=== PATIENT | female | born 1955 | race Caucasian/White ===

== ENCOUNTER 2020-04-06 11:35 | Emergency (ER) | payer OTHER ==
[2020-04-06] MEDS ORDERED: ONDANSETRON HCL 4 MG/2 ML VIAL ONE (12:11)
[2020-04-06] MEDS ORDERED: SODIUM CHLORIDE 0.9% 500ML 500 ML IV ONE (12:12)
[2020-04-06 12:21] LABS: BASOPHILS % (AUTO) 0.7 % (0.0-5.0); EOSINOPHILS % (AUTO) 1.3 % (0.0-8.0); HEMATOCRIT 39.1 % (36-48); MEAN CORPUSCULAR HEMOGLOBIN 28.6 pg (27.0-33.0); MEAN CORPUSCULAR HGB CONC 32.7 g/dL (32.0-36.0); MEAN CORPUSCULAR VOLUME 87.5 fL (79-99); MONOCYTES % (AUTO) 5.1 % (3.0-13.0); NEUTROPHILS % (AUTO) 70.5 % (40.0-77.0); PLATELET COUNT (AUTO) 303 K/uL (130-400); RED BLOOD CELL COUNT(AUTO) 4.47 MIL/uL (4.00-5.50); RED CELL DISTRIBUTION WIDTH 13.2 % (11.0-15.5); WHITE BLOOD COUNT (AUTO) 9.1 K/uL (4.8-10.8)
[2020-04-06 12:29] LABS: CREATININE 0.9 mg/dL (0.5-1.5); POTASSIUM 5.1 mmol/L (3.5-5.1)
[2020-04-06 12:34] LABS: ALBUMIN 4.2 g/dL (3.5-5.0); BILIRUBIN,DIRECT 0.1 mg/dL (0.0-0.3); BILIRUBIN,TOTAL 0.5 mg/dL (0.2-1.0); TOTAL PROTEIN, SERUM 7.7 g/dL (6.0-8.3)
== END 2020-04-06 14:07 | disposition home or self-care (01) ==
LOC: EDH 11:35
DX: R05 Cough (principal); R19.7 Diarrhea, unspecified; Z20.828 Contact with and (suspected) exposure to other viral communicable diseases
CPT/HCPCS: 36415; 71045; 80048; 80076; 82550; 82728; 85025; 85378; 96374; 99283; J2405; J7040; U0003

== ENCOUNTER → 2020-08-27 | Outpatient (CLI) | payer OTHER | END | disposition home or self-care (01) | LOC: RAH 10:25 | PROVIDERS: ATTEND Family Medicine | DX: E11.51 Type 2 diabetes mellitus with diabetic peripheral angiopathy without gangrene (principal); L60.0 Ingrowing nail; E11.9 Type 2 diabetes mellitus without complications | CPT/HCPCS: 93922 ==

== ENCOUNTER 2021-06-27 10:09 | Emergency (ER) | payer OTHER ==
[~2021-06-27] VITALS: Ht 154.9 cm; Wt 58.1 kg
[2021-06-27 10:38] VITALS: BP 175/76
[2021-06-27] MEDS ORDERED: HYDROCODONE/ACETAMINOPHEN 5/325 MG TAB PO ONE (11:30)
[2021-06-27] MEDS ORDERED: KETOROLAC 30MG VIAL (30MG/ML) IM PRN (11:30)
[2021-06-27] MEDS ORDERED: LIDOCAINE 5% TOPICAL PATCH TP ONE (11:30)
[2021-06-27] MEDS ORDERED: LIDOP TD ×2 (12:26→13:12)
[2021-06-27] MEDS ORDERED: CYCL10 PO ×2 (12:26→13:12)
[2021-06-27] MEDS ORDERED: NAPR-1180 PO ×2 (12:26→13:12)
== END 2021-06-27 14:13 | disposition home or self-care (01) ==
LOC: EDH 10:09
DX: M43.6 Torticollis (principal); I25.10 Atherosclerotic heart disease of native coronary artery without angina pectoris; E11.9 Type 2 diabetes mellitus without complications; I10 Essential (primary) hypertension; Z79.1 Long term (current) use of non-steroidal anti-inflammatories (NSAID); Z88.8 Allergy status to other drugs, medicaments and biological substances; Z95.1 Presence of aortocoronary bypass graft; Z91.041 Radiographic dye allergy status
CPT/HCPCS: 72040; 96372; 99283; J1885

== ENCOUNTER 2021-07-19 22:37 | Emergency (ER) | payer OTHER ==
[~2021-07-19 22:37] MED LIST: CYCL10 PO; LIDOP TD; NAPR-1180 PO
[2021-07-20 00:22] LABS: BASOPHILS % (AUTO) 0.6 % (0.0-5.0); EOSINOPHILS % (AUTO) 2.8 % (0.0-8.0); HEMATOCRIT 35.4 % (36-48); LYMPHOCYTES % (AUTO) 15.1 % (21.0-51.0); MEAN CORPUSCULAR HEMOGLOBIN 26.4 pg (27.0-33.0); MEAN CORPUSCULAR HGB CONC 31.6 g/dL (32.0-36.0); MEAN CORPUSCULAR VOLUME 83.3 fL (79-99); MONOCYTES % (AUTO) 5.4 % (3.0-13.0); NEUTROPHILS % (AUTO) 75.6 % (40.0-77.0); PLATELET COUNT (AUTO) 212 K/uL (130-400); RED BLOOD CELL COUNT(AUTO) 4.25 MIL/uL (4.00-5.50); RED CELL DISTRIBUTION WIDTH 14.6 % (11.0-15.5); WHITE BLOOD COUNT (AUTO) 8.8 K/uL (4.8-10.8)
[2021-07-20 00:30] LABS: CREATININE 0.7 mg/dL (0.5-1.5); INR 1.07 (0.85-1.15); POTASSIUM 5.8 mmol/L (3.5-5.1); PROTHROMBIN TIME 11.6 SEC (9.6-11.6)
[2021-07-20 00:36] LABS: ALBUMIN 4.3 g/dL (3.5-5.0); BILIRUBIN,TOTAL 0.4 mg/dL (0.2-1.0)
[2021-07-20 00:42] VITALS: BP 170/70
[2021-07-20] MEDS ORDERED: CEPHALEXIN 250 MG CAPSULE PO SCH (01:30)
[2021-07-20] MEDS ORDERED: HYDROCODONE/ACETAMINOPHEN 5/325 MG TAB PO ONE (01:30)
[2021-07-20] MEDS ORDERED: MELO7.5T12 PO (01:43)
[2021-07-20] MEDS ORDERED: ORPH-43 PO (01:43)
[2021-07-20] MEDS ORDERED: HYDROCODONE/ACETAMINOPHEN 5/325 MG TAB ONE (01:49)
[2021-07-20] MEDS ORDERED: CEPHALEXIN 250 MG CAPSULE ONE (01:49)
== END 2021-07-20 02:22 | disposition home or self-care (01) ==
LOC: EDH 22:37
DX: S20.214A Contusion of middle front wall of thorax, initial encounter (principal); E11.9 Type 2 diabetes mellitus without complications; I25.10 Atherosclerotic heart disease of native coronary artery without angina pectoris; J44.9 Chronic obstructive pulmonary disease, unspecified; Z79.1 Long term (current) use of non-steroidal anti-inflammatories (NSAID); Z88.8 Allergy status to other drugs, medicaments and biological substances; Z95.1 Presence of aortocoronary bypass graft; Z91.041 Radiographic dye allergy status; W22.8XXA Striking against or struck by other objects, initial encounter; Y93.89 Activity, other specified; Y92.89 Other specified places as the place of occurrence of the external cause; Y99.8 Other external cause status
CPT/HCPCS: 36415; 71045; 80053; 83690; 84484; 85025; 85610; 93005

== ENCOUNTER 2021-12-10 16:52 | Emergency (ER) | payer OTHER ==
[~2021-12-10] VITALS: Ht 154.9 cm; Wt 58.1 kg
[~2021-12-10 16:52] MED LIST changes: -CYCL10 PO; +CYCL10TA16 PO; +MELO7.5T12 PO; +ORPH-43 PO
[2021-12-10 17:25] LABS: APPEARANCE,URINE SL CLOUDY (CLEAR); BILIRUBIN,URINE NEGATIVE (NEGATIVE); COLOR,URINE RED (YELLOW); GLUCOSE, URINE (UA) NEGATIVE (NEGATIVE); KETONES,URINE NEGATIVE (NEGATIVE); LEUKOCYTE ESTERASE ,URINE TRACE (NEGATIVE); NITRATE,URINE NEGATIVE (NEGATIVE); OCCULT BLOOD,URINE LARGE (NEGATIVE); PROTEIN,URINE >=300 mg/dL (NEGATIVE); UROBILINOGEN,URINE 0.2 mg/dL (0.2-1.0)
[2021-12-10] MEDS ORDERED: ACETAMINOPHEN 500 MG TABLET PO ONE (17:30)
[2021-12-10 17:50] LABS: BASOPHILS % (AUTO) 0.7 % (0.0-5.0); EOSINOPHILS % (AUTO) 4.1 % (0.0-8.0); HEMATOCRIT 29.8 % (36-48); MEAN CORPUSCULAR HEMOGLOBIN 24.7 pg (27.0-33.0); MEAN CORPUSCULAR HGB CONC 30.9 g/dL (32.0-36.0); MEAN CORPUSCULAR VOLUME 79.9 fL (79-99); MONOCYTES % (AUTO) 7.8 % (3.0-13.0); PLATELET COUNT (AUTO) 326 K/uL (130-400); RED BLOOD CELL COUNT(AUTO) 3.73 MIL/uL (4.00-5.50); RED CELL DISTRIBUTION WIDTH 14.7 % (11.0-15.5)
[2021-12-10 17:56] LABS: BACTERIA,URINE Rare /HPF (None Seen); RBC,URINE >100 /HPF (0-1)
[2021-12-10 18:03] LABS: CREATININE 0.8 mg/dL (0.5-1.5); POTASSIUM 4.8 mmol/L (3.5-5.1)
[2021-12-10 18:08] LABS: BILIRUBIN,TOTAL 0.3 mg/dL (0.2-1.0); TOTAL PROTEIN, SERUM 7.7 g/dL (6.0-8.3)
[2021-12-10] MEDS ORDERED: FERR324T4 PO (18:47)
[2021-12-10] MEDS ORDERED: CEPH500B PO (18:47)
[2021-12-10] MEDS ORDERED: CEFTRIAXONE 500MG VIAL IM SCH (19:00)
[2021-12-10 19:16] VITALS: BP 144/60
== END 2021-12-10 19:24 | disposition home or self-care (01) ==
LOC: EDH 16:52
DX: N39.0 Urinary tract infection, site not specified (principal); D64.9 Anemia, unspecified; E11.9 Type 2 diabetes mellitus without complications; I25.10 Atherosclerotic heart disease of native coronary artery without angina pectoris; Z79.1 Long term (current) use of non-steroidal anti-inflammatories (NSAID); Z88.8 Allergy status to other drugs, medicaments and biological substances; Z95.1 Presence of aortocoronary bypass graft
CPT/HCPCS: 36415; 80053; 81001; 85025; 96372; 99283; J0696

== ENCOUNTER 2022-10-03 02:37 | Emergency (ER) | payer OTHER, MEDICARE ==
[~2022-10-03] VITALS: Ht 149.9 cm; Wt 56.7 kg
[~2022-10-03 02:37] MED LIST changes: +CEPH500B PO; +FERR324T4 PO
[2022-10-03 03:09] LABS: BASOPHILS % (AUTO) 0.8 % (0.0-5.0); EOSINOPHILS % (AUTO) 3.1 % (0.0-8.0); HEMATOCRIT 30.4 % (36-48); LYMPHOCYTES % (AUTO) 13.1 % (21.0-51.0); MEAN CORPUSCULAR HEMOGLOBIN 23.1 pg (27.0-33.0); MEAN CORPUSCULAR HGB CONC 30.3 g/dL (32.0-36.0); MEAN CORPUSCULAR VOLUME 76.2 fL (79-99); MONOCYTES % (AUTO) 7.6 % (3.0-13.0); NEUTROPHILS % (AUTO) 74.9 % (40.0-77.0); PLATELET COUNT (AUTO) 306 K/uL (130-400); RED BLOOD CELL COUNT(AUTO) 3.99 MIL/uL (4.00-5.50); RED CELL DISTRIBUTION WIDTH 14.4 % (11.0-15.5); WHITE BLOOD COUNT (AUTO) 8.4 K/uL (4.8-10.8)
[2022-10-03 03:40] LABS: INR 1.03 (0.85-1.15); PROTHROMBIN TIME 11.2 SEC (9.6-11.6)
[2022-10-03 03:41] LABS: PARTIAL THROMBOPLASTIN TIME 27.1 SEC (26.3-35.5)
[2022-10-03 04:20] LABS: CREATININE 0.7 mg/dL (0.5-1.5); POTASSIUM 4.5 mmol/L (3.5-5.1)
[2022-10-03 04:27] LABS: ALBUMIN 4.1 g/dL (3.5-5.0); TOTAL PROTEIN, SERUM 7.6 g/dL (6.0-8.3)
[2022-10-03] MEDS ORDERED: 0.9%NACL 1000ML 0 ML IV ONE (07:56)
[2022-10-03] MEDS ORDERED: ACETAMINOPHEN 500 MG TABLET PO ONE (09:30)
[2022-10-03] MEDS ORDERED: ACET-66 PO (10:06)
[2022-10-03 10:48] VITALS: BP 166/70
== END 2022-10-03 10:52 | disposition home or self-care (01) ==
LOC: EDH 02:37
DX: S00.03XA Contusion of scalp, initial encounter (principal); I25.10 Atherosclerotic heart disease of native coronary artery without angina pectoris; E11.9 Type 2 diabetes mellitus without complications; Z98.890 Other specified postprocedural states; Z79.899 Other long term (current) drug therapy; Z88.8 Allergy status to other drugs, medicaments and biological substances; Z88.5 Allergy status to narcotic agent; W18.39XA Other fall on same level, initial encounter; Y93.89 Activity, other specified; Y92.89 Other specified places as the place of occurrence of the external cause; Y99.8 Other external cause status
CPT/HCPCS: 10160; 36415; 70450; 72125; 74176; 80053; 84484; 85025; 85610; 85730; 93005; J7030

== ENCOUNTER 2022-11-28 18:56 | Emergency (ER) | payer OTHER, MEDICARE ==
[~2022-11-28] VITALS: Ht 149.9 cm; Wt 58.5 kg
[~2022-11-28 18:56] MED LIST changes: +ACET-66 PO; +NITR.4 SL
[2022-11-28 21:41] VITALS: BP 141/84
== END 2022-11-28 21:44 | disposition home or self-care (01) ==
LOC: EDH 18:56
DX: J06.9 Acute upper respiratory infection, unspecified (principal); Z20.822 Contact with and (suspected) exposure to COVID-19; I10 Essential (primary) hypertension; E11.9 Type 2 diabetes mellitus without complications; Z88.8 Allergy status to other drugs, medicaments and biological substances; Z79.899 Other long term (current) drug therapy
CPT/HCPCS: 99283; 87635; 87880; 87804 ×2; C9803

== ENCOUNTER 2023-05-15 15:16 | Observation (INO) | payer OTHER, MEDICARE ==
[~2023-05-15] VITALS: Ht 157.5 cm; Wt 58.3 kg
[~2023-05-15 15:16] MED LIST changes: -ORPH-43 PO; +ORPH100T4 PO
[2023-05-15] MEDS ORDERED: 0.9%NACL 1000ML 1,000 ML IV ONE (16:30)
[2023-05-15 17:03] LABS: RAPID GROUP A STREP negative (NEGATIVE)
[2023-05-15 17:05] LABS: BASOPHILS # (AUTO) 0.03 K/uL (0.00-0.20); BASOPHILS % (AUTO) 0.3 % (0.0-5.0); EOSINOPHILS % (AUTO) 1.9 % (0.0-8.0); HEMATOCRIT 35.1 % (36-48); IMMATURE GRANULOCYTE ABSOLUTE 0.04 K/uL (0-1); LYMPHOCYTES # (AUTO) 0.8 K/uL (1.0-4.8); LYMPHOCYTES % (AUTO) 7.9 % (21.0-51.0); MEAN CORPUSCULAR HEMOGLOBIN 29.1 pg (27.0-33.0); MEAN CORPUSCULAR VOLUME 88.2 fL (79-99); MONOCYTES % (AUTO) 9.2 % (3.0-13.0); NEUTROPHILS # (AUTO) 8.5 K/uL (1.8-7.7); NEUTROPHILS % (AUTO) 80.3 % (40.0-77.0); PLATELET COUNT (AUTO) 243 K/uL (130-400); RED BLOOD CELL COUNT(AUTO) 3.98 MIL/uL (4.00-5.50); RED CELL DISTRIBUTION WIDTH 12.8 % (11.0-15.5); WHITE BLOOD COUNT (AUTO) 10.6 K/uL (4.8-10.8)
[2023-05-15 17:08] LABS: SARS-CoV-2, RNA, NAAT NEGATIVE SARS CoV-2 (NEGATIVE)
[2023-05-15 17:09] LABS: INFLUENZA TYPE A Negative For Type A (NEGATIVE); INFLUENZA TYPE B Negative For Type B (NEGATIVE)
[2023-05-15 17:27] LABS: ALBUMIN 4.1 g/dL (3.5-5.0); BILIRUBIN,TOTAL 0.5 mg/dL (0.2-1.0); CREATININE 0.7 mg/dL (0.5-1.5); POTASSIUM 4.8 mmol/L (3.5-5.1); TOTAL PROTEIN, SERUM 7.7 g/dL (6.0-8.3)
[2023-05-15 17:50] LABS: APPEARANCE,URINE CLEAR (CLEAR); BILIRUBIN,URINE NEGATIVE (NEGATIVE); COLOR,URINE LIGHT-YELLOW (YELLOW); GLUCOSE, URINE (UA) NEGATIVE (NEGATIVE); KETONES,URINE NEGATIVE (NEGATIVE); LEUKOCYTE ESTERASE ,URINE NEGATIVE Leu/uL (NEGATIVE); NITRATE,URINE NEGATIVE (NEGATIVE); OCCULT BLOOD,URINE NEGATIVE (NEGATIVE); PROTEIN,URINE NEGATIVE (NEGATIVE); UROBILINOGEN,URINE 0.2 mg/dL (0.2-1.0)
[2023-05-15 17:53] LABS: ADD UA MICROSCOPIC YES
[2023-05-15 17:57] LABS: WBC,URINE 0-1 /HPF (0-1)
[2023-05-15] MEDS ORDERED: MAG/ALUM/SIMETH 30 ML UDCUP PO PRN (18:30)
[2023-05-15] MEDS ORDERED: NITROGLYCERIN 0.4 MG SL TAB SL PRN (18:30)
[2023-05-15] MEDS ORDERED: LACTULOSE 20 GM/30 ML UDCUP PO PRN (18:30)
[2023-05-15] MEDS ORDERED: KETOROLAC 15MG/ML VIAL (15MG/ML) IM PRN (18:30)
[2023-05-15] MEDS ORDERED: ZOLPIDEM TARTRATE 5 MG TAB PO PRN (18:30)
[2023-05-15] MEDS ORDERED: ONDANSETRON 4MG INJ IV PRN (18:30)
[2023-05-15] MEDS ORDERED: ALBUTEROL 0.083% 2.5 MG/3 ML INH IH PRN (18:30)
[2023-05-15] MEDS ORDERED: HYDRALAZINE 20MG/ML VIAL IV PRN (18:30)
[2023-05-15] MEDS ORDERED: DiphenhydrAMINE HCL 50 MG/ML VIAL IV PRN (18:30)
[2023-05-15] MEDS ORDERED: GUAIFENESIN-DM 200/20 MG 10 ML PO PRN (18:30)
[2023-05-15] MEDS ORDERED: ACETAMINOPHEN 325 MG TAB PO PRN ×3 (18:30)
[2023-05-15] MEDS: 0.9%NACL 1000ML 1,000 ML IV SCH (19:31)
[2023-05-15 19:41] VITALS: PULSE 76; RESP 19; O2SAT 100
[2023-05-15] MEDS ORDERED: HEPARIN 5,000 UNIT VIAL SQ SCH (21:00)
[2023-05-15] MEDS ORDERED: FAMOTIDINE 20MG VIAL IV SCH (21:00)
[2023-05-15] MEDS: INSULIN HUMULIN R 100 UNIT/ML 3ML SQ SCH (21:00)
[2023-05-15] MEDS: FAMOTIDINE 20MG VIAL IV SCH (21:01)
[2023-05-15] MEDS ORDERED: METO-391 PO (22:44)
[2023-05-15] MEDS ORDERED: CLOP-31 PO (22:44)
[2023-05-15] MEDS ORDERED: LISI20TA24 PO (22:44)
[2023-05-15] MEDS ORDERED: ATOR10 PO (22:44)
[2023-05-15] MEDS ORDERED: APIX5TAB PO (22:44)
[2023-05-15] MEDS ORDERED: DONE10TA43 PO (22:44)
[2023-05-16 02:45] VITALS: BP 148/66; PULSE 67; RESP 20
[2023-05-16] MEDS ORDERED: METF-446 PO (03:27)
[2023-05-16] MEDS: 0.9%NACL 1000ML 1,000 ML IV SCH (03:35)
[2023-05-16 05:08] LABS: BASOPHILS # (AUTO) 0.03 K/uL (0.00-0.20); BASOPHILS % (AUTO) 0.5 % (0.0-5.0); EOSINOPHILS # (AUTO) 0.18 K/uL (0.00-0.70); EOSINOPHILS % (AUTO) 2.8 % (0.0-8.0); HEMATOCRIT 28.7 % (36-48); IMMATURE GRANULOCYTE ABSOLUTE 0.03 K/uL (0-1); LYMPHOCYTES # (AUTO) 0.8 K/uL (1.0-4.8); LYMPHOCYTES % (AUTO) 12.3 % (21.0-51.0); MEAN CORPUSCULAR HEMOGLOBIN 28.8 pg (27.0-33.0); MEAN CORPUSCULAR HGB CONC 33.4 g/dL (32.0-36.0); MEAN CORPUSCULAR VOLUME 86.2 fL (79-99); MONOCYTES # (AUTO) 0.7 K/uL (0.1-1.0); MONOCYTES % (AUTO) 10.3 % (3.0-13.0); NEUTROPHILS # (AUTO) 4.8 K/uL (1.8-7.7); NEUTROPHILS % (AUTO) 73.6 % (40.0-77.0); PLATELET COUNT (AUTO) 206 K/uL (130-400); RED BLOOD CELL COUNT(AUTO) 3.33 MIL/uL (4.00-5.50); WHITE BLOOD COUNT (AUTO) 6.5 K/uL (4.8-10.8)
[2023-05-16 05:35] LABS: ALBUMIN 3.2 g/dL (3.5-5.0); BILIRUBIN,TOTAL 0.4 mg/dL (0.2-1.0); CREATININE 0.6 mg/dL (0.5-1.5); HEMOGLOBIN A1C 7.4 % (4.0-6.0); POTASSIUM 4.1 mmol/L (3.5-5.1); THYROID STIMULATING HORMONE 0.36 uIU/mL (0.36-3.74); TOTAL PROTEIN, SERUM 6.1 g/dL (6.0-8.3)
[2023-05-16] MEDS: INSULIN HUMULIN R 100 UNIT/ML 3ML SQ SCH ×3 (06:55→17:19)
[2023-05-16 07:08] VITALS: PULSE 82; RESP 19; O2SAT 98
[2023-05-16 08:00] VITALS: BP 115/58; PULSE 66; RESP 18; O2SAT 95
[2023-05-16] MEDS: FAMOTIDINE 20MG VIAL IV SCH (08:46)
[2023-05-16 12:00] VITALS: BP 149/56; PULSE 70; RESP 18
[2023-05-16 16:00] VITALS: BP 162/60; PULSE 71; RESP 18
== END 2023-05-16 18:25 | disposition home or self-care (01) ==
LOC: EDH 15:16 → EDHIP 18:22 → 3BH 05-16 01:59
PROVIDERS: ADMIT Internal Medicine Critical Care Medicine; ATTEND Internal Medicine Critical Care Medicine
DX: E86.0 Dehydration (principal); Z20.822 Contact with and (suspected) exposure to COVID-19; E87.1 Hypo-osmolality and hyponatremia; R74.02 Elevation of levels of lactic acid dehydrogenase [LDH]; I25.10 Atherosclerotic heart disease of native coronary artery without angina pectoris; I10 Essential (primary) hypertension; M43.6 Torticollis; E11.9 Type 2 diabetes mellitus without complications; B02.9 Zoster without complications; Z87.828 Personal history of other (healed) physical injury and trauma; Z95.1 Presence of aortocoronary bypass graft; Z79.899 Other long term (current) drug therapy
CPT/HCPCS: 96372; 96374; 96361; 99285; 84484 ×2; 80053 ×2; 85025 ×2; 87040 ×2; 87088; 87880; 87804 ×2; 83605 ×3; 81001; 36415 ×2; 87635; 71045; 93005 ×2; 94664; 96376; 83036; 84443; 82550; 83880; 82140; 82948 ×3; 93306; 93356; 84145; G0378 ×22; C9803; J7030; J1815; J3490; J1885

== ENCOUNTER 2023-06-01 20:34 | Emergency (ER) | payer OTHER, MEDICARE ==
[~2023-06-01] VITALS: Ht 154.9 cm; Wt 57.2 kg
[~2023-06-01 20:34] MED LIST changes: +APIX5TAB PO; +ATOR10 PO; +CLOP-31 PO; +DONE10TA43 PO; +LISI20TA24 PO; +METF-446 PO; +METO-391 PO
[2023-06-01 22:11] VITALS: BP 149/86; PULSE 85; RESP 18; O2SAT 98
[2023-06-01 22:23] LABS: APPEARANCE,URINE CLEAR (CLEAR); BILIRUBIN,URINE NEGATIVE (NEGATIVE); COLOR,URINE COLORLESS (YELLOW); GLUCOSE, URINE (UA) NEGATIVE (NEGATIVE); KETONES,URINE NEGATIVE (NEGATIVE); LEUKOCYTE ESTERASE ,URINE NEGATIVE Leu/uL (NEGATIVE); NITRATE,URINE NEGATIVE (NEGATIVE); OCCULT BLOOD,URINE NEGATIVE (NEGATIVE); PH,URINE 5.5 (5.0-8.0); PROTEIN,URINE 10 mg/dL (NEGATIVE); UROBILINOGEN,URINE 0.2 mg/dL (0.2-1.0)
[2023-06-01 22:26] LABS: RAPID GROUP A STREP negative (NEGATIVE)
[2023-06-01 22:29] LABS: ADD UA MICROSCOPIC YES
[2023-06-01 22:32] LABS: SARS-CoV-2, RNA, NAAT NEGATIVE SARS CoV-2 (NEGATIVE)
[2023-06-01 22:36] LABS: INFLUENZA TYPE A Negative For Type A (NEGATIVE); INFLUENZA TYPE B Negative For Type B (NEGATIVE)
[2023-06-01] MEDS ORDERED: 0.9%NACL 1000ML 1,000 ML IV ONE (23:00)
[2023-06-01 23:05] LABS: BACTERIA,URINE None Seen /HPF (None Seen); SQUAMOUS EPITHELIAL CELL,UR None Seen /HPF (0-2); WBC,URINE 0-1 /HPF (0-1)
[2023-06-01] MEDS ORDERED: ONDA-104 PO (23:06)
[2023-06-01 23:21] LABS: BASOPHILS # (AUTO) 0.08 K/uL (0.00-0.20); BASOPHILS % (AUTO) 0.9 % (0.0-5.0); EOSINOPHILS # (AUTO) 0.26 K/uL (0.00-0.70); HEMATOCRIT 35.7 % (36-48); IMMATURE GRANULOCYTE ABSOLUTE 0.04 K/uL (0-1); LYMPHOCYTES # (AUTO) 0.6 K/uL (1.0-4.8); LYMPHOCYTES % (AUTO) 6.5 % (21.0-51.0); MEAN CORPUSCULAR HEMOGLOBIN 29.5 pg (27.0-33.0); MEAN CORPUSCULAR HGB CONC 33.1 g/dL (32.0-36.0); MEAN CORPUSCULAR VOLUME 89.3 fL (79-99); MONOCYTES # (AUTO) 0.8 K/uL (0.1-1.0); MONOCYTES % (AUTO) 9.7 % (3.0-13.0); NEUTROPHILS # (AUTO) 6.8 K/uL (1.8-7.7); NEUTROPHILS % (AUTO) 79.4 % (40.0-77.0); PLATELET COUNT (AUTO) 231 K/uL (130-400); RED CELL DISTRIBUTION WIDTH 12.8 % (11.0-15.5); WHITE BLOOD COUNT (AUTO) 8.6 K/uL (4.8-10.8)
[2023-06-01 23:39] LABS: CHLORIDE 94 mmol/L (101-111)
[2023-06-01 23:42] LABS: CARBON DIOXIDE 26 mmol/L (21-32); GLUCOSE,RANDOM 116 mg/dL (70-105)
[2023-06-01 23:43] LABS: ALANINE AMINOTRANSFERASE 16 U/L (12-78); ALBUMIN 3.9 g/dL (3.5-5.0); ASPARTATE AMINOTRANSFERASE 35 U/L (10-37); BILIRUBIN,TOTAL 0.5 mg/dL (0.2-1.0); CREATINE KINASE, TOTAL 153 U/L (21-232); CREATININE 0.7 mg/dL (0.5-1.5); GLOMERULAR FILTR. RATE CALC 94 mL/min (>90); TOTAL PROTEIN, SERUM 7.7 g/dL (6.0-8.3); UREA NITROGEN, BLOOD 12 mg/dL (7-18)
[2023-06-01 23:44] LABS: SODIUM SERUM 126 mmol/L (136-145)
[2023-06-02] MEDS ORDERED: 0.9%NACL 1000ML 2,000 ML IV ONE (01:00)
== END 2023-06-02 02:06 | disposition home or self-care (01) ==
LOC: EDH 20:34
DX: E87.1 Hypo-osmolality and hyponatremia (principal); E86.0 Dehydration; B34.9 Viral infection, unspecified; E11.9 Type 2 diabetes mellitus without complications; E78.00 Pure hypercholesterolemia, unspecified; I10 Essential (primary) hypertension; Z79.01 Long term (current) use of anticoagulants; Z79.02 Long term (current) use of antithrombotics/antiplatelets; Z79.1 Long term (current) use of non-steroidal anti-inflammatories (NSAID); Z79.84 Long term (current) use of oral hypoglycemic drugs; Z79.899 Other long term (current) drug therapy; Z88.8 Allergy status to other drugs, medicaments and biological substances; Z95.1 Presence of aortocoronary bypass graft; Z20.822 Contact with and (suspected) exposure to COVID-19
CPT/HCPCS: 99283; 96360; 87635; 96361; 82550; 84484; 84132; 80053; 85025; 87880; 87804 ×2; 81003; 81001; 36415; C9803; J7030 ×2

== ENCOUNTER 2023-07-29 17:02 | Emergency (ER) | payer OTHER, MEDICARE ==
[~2023-07-29] VITALS: Ht 154.9 cm; Wt 56.7 kg
[~2023-07-29 17:02] MED LIST changes: +ONDA-104 PO
[2023-07-29 19:10] VITALS: BP 154/71; PULSE 81; RESP 14; O2SAT 98
[2023-07-29] MEDS ORDERED: BACITRACIN 1 EACH PACKET TP ONE (19:54)
[2023-07-29] MEDS ORDERED: MUPI15C TP (20:00)
== END 2023-07-29 20:12 | disposition home or self-care (01) ==
LOC: EDH 17:02
DX: L97.929 Non-pressure chronic ulcer of unspecified part of left lower leg with unspecified severity (principal); I10 Essential (primary) hypertension; E78.00 Pure hypercholesterolemia, unspecified; E11.9 Type 2 diabetes mellitus without complications; Z88.8 Allergy status to other drugs, medicaments and biological substances; Z79.84 Long term (current) use of oral hypoglycemic drugs; Z79.899 Other long term (current) drug therapy

== ENCOUNTER → 2024-10-24 | Outpatient (CLI) | payer OTHER, MEDICARE ==
[~2024-10-24] MED LIST changes: -CEPH500B PO; -CYCL10TA16 PO; -MELO7.5T12 PO; +MUPI15C TP; -NAPR-1180 PO
--- NOTE | 2024-10-24 11:48 | HMCIMG ---
US THYROID/NECK REASON: Nontoxic single thyroid nodule COMPARISON: None TECHNIQUE: Routine thyroid sonogram was performed. There are no studies for comparison. FINDINGS: There is heterogeneous appearing thyroid parenchyma on the right, homogeneous on the left. Right lobe is 5.7 x 4.0 x 3.3 cm, left is 4.4 x 1.9 x 1.6 cm. There is a dominant mass in the mid portion and lower pole of the right lobe measuring 3.5 x 3.6 x 4.2 cm. This is solid and hypoechoic. The thyroid T score is 4, moderately suspicious, biopsy is recommended due to the size. There is a cyst in the upper pole of the right kidney measuring 3.6 cm. There is a 6 mm hypoechoic nodule upper pole left lobe and a 5 mm calcification lower pole left lobe. There are no additional solid lesions in the isthmus or left lobe.. IMPRESSION: 1. 3.6 x 4.2 cm dominant mass mid and lower portion of the right lobe of the thyroid, biopsy is recommended.
== END | disposition home or self-care (01) ==
LOC: RAH 10:53
PROVIDERS: ATTEND Internal Medicine
DX: E04.1 Nontoxic single thyroid nodule (principal); R91.8 Other nonspecific abnormal finding of lung field; R91.1 Solitary pulmonary nodule
CPT/HCPCS: 76536

== ENCOUNTER → 2024-11-10 | Outpatient (CLI) | payer OTHER, MEDICARE ==
--- NOTE | 2024-11-10 10:40 | NUR ---
U/S GD RT THYROID NODULE FNA TOLERATED PROCEDURE, PERFORMED BY DR GARDUNO. PUNCTURE SITE TO RT NECK. X4 FNA OF RT THYROID NODULE COLLECTED BY LABOR ARBITRATOR MIHAELA AT BEDSIDE. END OF PROCEDURE AT 1020. DRESSING DRY AND INTACT. DENIES PAIN. DISCHARGE VIA WHEELCHAIR WITH CAREGIVER. DISCHARGE INSTRUCTIONS GIVEN. VERBALIZED UNDERSTANDING. DENIES PAIN.
[2024-11-10 10:44] LABS: INR <= 0.93 (0.85-1.15); PROTHROMBIN TIME 10.3 SEC (9.6-11.6)
--- NOTE | 2024-11-11 17:21 | HMCIMG ---
US FINE NEEDLE ASP IR REASON: RT THYROID NODULE 3.5CM COMPARISON: None TECHNIQUE: Fine-needle aspiration of right thyroid nodule. FINDINGS: Right thyroid nodule, solid. PROCEDURE: Informed consent obtained from the patient following explanation of risk, benefits, complications. Timeout performed by radiology nursing staff. Right neck was prepped and draped in sterile fashion. Following local anesthesia with 7 mL of 1% lidocaine subcutaneous, multiple fine-needle aspirates were obtained of the right lobe thyroid nodule utilizing 25-gauge needle. A total of 5 specimen obtained and submitted for cytologic evaluation. Needle removed. Hemostasis obtained with direct pressure. Patient tolerated procedure well without evidence of complication. IMPRESSION: Ultrasound-guided fine-needle aspirations of right thyroid nodule. Specimen submitted for laboratory analysis.
== END | disposition home or self-care (01) ==
LOC: RAH 08:52
PROVIDERS: ATTEND Internal Medicine
DX: E04.1 Nontoxic single thyroid nodule (principal); E11.40 Type 2 diabetes mellitus with diabetic neuropathy, unspecified; I48.91 Unspecified atrial fibrillation; Z79.899 Other long term (current) drug therapy; Z98.890 Other specified postprocedural states
CPT/HCPCS: 10005; 36415; 76942; 85610; 85730; 88173; 88305